=== PATIENT | female | born 1935 | race Two or more races ===

== ENCOUNTER 2023-01-16 21:13 | Inpatient (IN) | payer MEDICARE, OTHER ==
[~2023-01-16] VITALS: Ht 157.5 cm; Wt 46.7 kg
[2023-01-16] MEDS ORDERED: LORAZEPAM INJ 2 MG/ML VIAL IM ONE (23:00)
[2023-01-16] MEDS ORDERED: LORAZEPAM INJ 2 MG/ML VIAL ONE (23:05)
[2023-01-16 23:13] LABS: BASOPHILS % (AUTO) 0.8 % (0.0-2.0); EOSINOPHILS # (AUTO) 0.2 K/uL (0.0-0.7); EOSINOPHILS % (AUTO) 3.3 % (0.0-6.0); HEMATOCRIT 37 % (33-45); HEMOGLOBIN 11.9 g/dL (11.5-14.8); LYMPHOCYTES # (AUTO) 0.9 K/uL (0.8-4.8); LYMPHOCYTES % (AUTO) 17.8 % (20.0-44.0); MEAN CORPUSCULAR HEMOGLOBIN 29 PG (26.0-33.0); MEAN CORPUSCULAR HGB CONC 32 g/dl (31.0-36.0); MEAN CORPUSCULAR VOLUME 91 fL (82-100); MONOCYTES # (AUTO) 0.5 K/uL (0.1-1.30); NEUTROPHILS # (AUTO) 3.6 K/uL (1.8-8.9); NEUTROPHILS % (AUTO) 69.1 % (43.0-81.0); PLATELET COUNT (AUTO) 204 K/uL (150-450); RED BLOOD CELL COUNT(AUTO) 4.04 MIL/uL (4.0-5.2); RED CELL DISTRIBUTION WIDTH 14.4 % (11.5-15.0); WHITE BLOOD COUNT (AUTO) 5.2 K/uL (4.3-11.0)
[2023-01-16 23:20] LABS: CALCIUM, SERUM 9.2 mg/dL (8.5-10.1); CARBON DIOXIDE 26 mmol/L (21-32); CHLORIDE 106 mmol/L (98-107); CREATININE 1.3 mg/dL (0.6-1.3); GLUCOSE 89 mg/dL (74-106); POTASSIUM 3.9 mmol/L (3.5-5.1); SODIUM SERUM 142 mmol/L (136-145); UREA NITROGEN, BLOOD 28 mg/dL (7-18)
[2023-01-16 23:26] LABS: ALANINE AMINOTRANSFERASE 35 U/L (12-78); ALBUMIN 3.6 g/dL (3.4-5.0); ALCOHOL, BLOOD < 3 mg/dL (0-10); ALKALINE PHOSPHATASE 82 U/L (46-116); ASPARTATE AMINOTRANSFERASE 35 U/L (15-37); BILIRUBIN,DIRECT 0.2 mg/dL (0.0-0.2); BILIRUBIN,TOTAL 0.6 mg/dL (0.2-1.0); TOTAL PROTEIN, SERUM 7.5 g/dL (6.4-8.2)
[2023-01-16 23:27] LABS: APPEARANCE,URINE CLEAR (CLEAR); BILIRUBIN,URINE 1+ (NEGATIVE); BLOOD, URINE NEGATIVE Ery/uL (NEGATIVE); COLOR,URINE DARK YELLOW (YELLOW); KETONES,URINE NEGATIVE (NEGATIVE); LEUKOCYTE ESTERASE ,URINE NEGATIVE (NEGATIVE); NITRITE, URINE NEGATIVE (NEGATIVE); PH,URINE 5.5 (5.0-8.0); PROTEIN,URINE 1+ mg/dl (NEGATIVE); UGLUCOSE NEGATIVE (NEGATIVE)
[2023-01-16 23:32] LABS: ADD URINE CULTURE NO; BACTERIA,URINE Rare /HPF (None Seen); RBC,URINE 0-2 /HPF (0-2); SQUAMOUS EPITHELIAL CELL,UR Few /HPF (None Seen); WBC,URINE 0-2 /HPF (0-3)
[2023-01-16 23:44] LABS: ACETAMINOPHEN <10 ug/ml (10-30); SALICYLATE < 2.3 mg/dL (2.8-20.0)
[2023-01-16 23:57] LABS: AMPHETAMINE, URINE NEGATIVE (NEGATIVE); BARBITURATE, URINE NEGATIVE (NEGATIVE); BENZODIAZEPINE, URINE NEGATIVE (NEGATIVE); CANNABINOID, URINE NEGATIVE (NEGATIVE); COCCAINE, URINE NEGATIVE (NEGATIVE); OPIATE, URINE NEGATIVE (NEGATIVE); PHENCYCLIDINE SCREEN,URINE NEGATIVE (NEGATIVE)
[2023-01-17] MEDS ORDERED: BIMA2.5D5 EACHEYE (00:13)
[2023-01-17 03:58] VITALS: BP 148/80; TEMP 98; O2SAT 98
[2023-01-17] MEDS ORDERED: MAG HYDROX/AL HYDROX/SIMETH 30 ML UDC PO PRN (04:00)
[2023-01-17] MEDS ORDERED: BLOOD SUGAR DIAGNOSTIC 1 EACH STRIP IN ONE (04:00)
[2023-01-17] MEDS ORDERED: ACETAMINOPHEN 325 MG TABLET PO PRN (04:00)
[2023-01-17] MEDS: QUETIAPINE FUMARATE 25 MG TABLET PO SCH ×2 (11:00→20:49)
[2023-01-17 16:00] VITALS: BP 162/66; TEMP 97.8; O2SAT 97
[2023-01-17] MEDS: hydrALAZINE HCL 10 MG TABLET PO SCH ×3 (16:30→20:49)
[2023-01-17] MEDS: LATANOPROST EYE DROP 0.005% 2.5 ML BOTTLE OP SCH (17:45)
[2023-01-17] MEDS ORDERED: BIMATOPROST 2.5 ML DROPS OP SCH (18:00)
[2023-01-17 20:00] VITALS: BP 141/71; TEMP 97.6; O2SAT 98
[2023-01-18] MEDS: hydrALAZINE HCL 10 MG TABLET PO SCH ×3 (05:00→20:51)
[2023-01-18 08:00] VITALS: BP 169/103; TEMP 97.7; O2SAT 97
[2023-01-18] MEDS: LORAZEPAM 0.5 MG TABLET PO PRN ×2 (08:12→22:15)
[2023-01-18] MEDS: QUETIAPINE FUMARATE 25 MG TABLET PO SCH ×2 (08:13→20:51)
[2023-01-18 16:00] VITALS: BP 165/86; TEMP 97.6; O2SAT 98
[2023-01-18] MEDS: LATANOPROST EYE DROP 0.005% 2.5 ML BOTTLE OP SCH (17:10)
[2023-01-18 20:00] VITALS: BP 192/78; TEMP 98; O2SAT 99
[2023-01-18 22:00] VITALS: BP 149/75
[2023-01-19] MEDS: hydrALAZINE HCL 10 MG TABLET PO SCH ×3 (05:00→20:50)
[2023-01-19 08:00] VITALS: BP 174/75; TEMP 97.9; O2SAT 99
[2023-01-19] MEDS: QUETIAPINE FUMARATE 25 MG TABLET PO SCH ×2 (08:22→20:50)
[2023-01-19] MEDS ORDERED: LORAZEPAM INJ 2 MG/ML VIAL IM ONE (10:30)
[2023-01-19 16:00] VITALS: BP 164/68; TEMP 97.9; O2SAT 100
[2023-01-19] MEDS: ENSURE ENLIVE CHOC 237 ML CAN PO SCH (17:17)
[2023-01-19] MEDS: LATANOPROST EYE DROP 0.005% 2.5 ML BOTTLE OP SCH (17:20)
[2023-01-19 20:50] VITALS: BP 173/85; O2SAT 98
[2023-01-20] MEDS: ZOLPIDEM TARTRATE 5 MG TABLET PO PRN (00:01)
[2023-01-20] MEDS: hydrALAZINE HCL 10 MG TABLET PO SCH ×3 (05:00→20:48)
[2023-01-20 08:00] VITALS: BP 161/78; TEMP 98.6; O2SAT 96
[2023-01-20] MEDS: QUETIAPINE FUMARATE 25 MG TABLET PO SCH ×2 (08:09→20:46)
[2023-01-20] MEDS: ENSURE ENLIVE CHOC 237 ML CAN PO SCH ×2 (08:11→16:09)
[2023-01-20] MEDS: LORAZEPAM 0.5 MG TABLET PO PRN (15:56)
[2023-01-20] MEDS: LATANOPROST EYE DROP 0.005% 2.5 ML BOTTLE OP SCH (17:01)
[2023-01-21] MEDS: hydrALAZINE HCL 10 MG TABLET PO SCH ×4 (05:00→21:23)
[2023-01-21 08:00] VITALS: BP 157/98; TEMP 98.7; O2SAT 98
[2023-01-21] MEDS: ENSURE ENLIVE CHOC 237 ML CAN PO SCH ×2 (08:09→16:37)
[2023-01-21] MEDS: QUETIAPINE FUMARATE 25 MG TABLET PO SCH ×3 (08:13→21:23)
[2023-01-21] MEDS: LORAZEPAM 0.5 MG TABLET PO PRN (12:13)
[2023-01-21 16:00] VITALS: BP 133/63; TEMP 97.8; O2SAT 98
[2023-01-21] MEDS: LATANOPROST EYE DROP 0.005% 2.5 ML BOTTLE OP SCH (17:54)
[2023-01-21 20:00] VITALS: BP 142/89; TEMP 98.1; O2SAT 99
[2023-01-22] MEDS: hydrALAZINE HCL 10 MG TABLET PO SCH ×4 (04:56→21:29)
[2023-01-22 08:00] VITALS: BP 117/76; TEMP 97.7; O2SAT 98
[2023-01-22] MEDS: ENSURE ENLIVE CHOC 237 ML CAN PO SCH ×2 (08:14→16:48)
[2023-01-22] MEDS: QUETIAPINE FUMARATE 25 MG TABLET PO SCH ×4 (08:14→21:29)
[2023-01-22 16:00] VITALS: BP 120/77; TEMP 97.9; O2SAT 98
[2023-01-22] MEDS: LATANOPROST EYE DROP 0.005% 2.5 ML BOTTLE OP SCH (17:51)
[2023-01-22] MEDS: MAGNESIUM HYDROXIDE 30 ML UDC PO PRN (17:52)
[2023-01-22] MEDS ORDERED: BISACODYL SUPP (10 MG) 10 MG/SUPP.RECT SUPP.RECT RC PRN (18:00)
[2023-01-22 20:00] VITALS: BP 125/71; TEMP 97.5; O2SAT 95
[2023-01-23] MEDS: hydrALAZINE HCL 10 MG TABLET PO SCH ×3 (05:00→21:33)
[2023-01-23 08:00] VITALS: BP 140/68; TEMP 97.8; O2SAT 97
[2023-01-23] MEDS: ENSURE ENLIVE CHOC 237 ML CAN PO SCH ×2 (08:00→17:19)
[2023-01-23] MEDS: QUETIAPINE FUMARATE 25 MG TABLET PO SCH ×2 (08:55→09:00)
[2023-01-23] MEDS ORDERED: OLANZAPINE 10 MG VIAL IM ONE (11:30)
[2023-01-23 16:00] VITALS: BP 152/80; TEMP 97.8; O2SAT 96
[2023-01-23] MEDS: OLANZAPINE 2.5 MG TABLET PO SCH ×2 (17:19→21:33)
[2023-01-23] MEDS: LATANOPROST EYE DROP 0.005% 2.5 ML BOTTLE OP SCH (18:12)
[2023-01-23] MEDS: ZOLPIDEM TARTRATE 5 MG TABLET PO PRN (21:39)
[2023-01-24] MEDS: hydrALAZINE HCL 10 MG TABLET PO SCH ×3 (05:00→21:00)
[2023-01-24 08:00] VITALS: BP 157/70; TEMP 97.5; O2SAT 94
[2023-01-24] MEDS: ENSURE ENLIVE CHOC 237 ML CAN PO SCH ×2 (08:35→17:00)
[2023-01-24] MEDS: OLANZAPINE 2.5 MG TABLET PO SCH ×3 (08:35→21:45)
[2023-01-24 16:00] VITALS: BP 144/63; TEMP 97.8; O2SAT 96
[2023-01-24] MEDS: LATANOPROST EYE DROP 0.005% 2.5 ML BOTTLE OP SCH (18:00)
[2023-01-24 20:00] VITALS: BP 133/80; TEMP 98; O2SAT 98
[2023-01-25] MEDS: hydrALAZINE HCL 10 MG TABLET PO SCH ×3 (04:50→21:00)
[2023-01-25 08:00] VITALS: BP 138/65; TEMP 98; O2SAT 97
[2023-01-25] MEDS: ENSURE ENLIVE CHOC 237 ML CAN PO SCH ×2 (08:00→16:15)
[2023-01-25] MEDS: OLANZAPINE 2.5 MG TABLET PO SCH ×4 (08:31→21:26)
[2023-01-25 16:00] VITALS: TEMP 97.7; O2SAT 99
[2023-01-25] MEDS: LATANOPROST EYE DROP 0.005% 2.5 ML BOTTLE OP SCH (17:49)
[2023-01-25 21:08] VITALS: BP 136/76; TEMP 97.8; O2SAT 99
[2023-01-26] MEDS: hydrALAZINE HCL 10 MG TABLET PO SCH ×3 (05:00→21:04)
[2023-01-26 08:00] VITALS: BP 139/75; TEMP 98.6; O2SAT 98
[2023-01-26] MEDS: ENSURE ENLIVE CHOC 237 ML CAN PO SCH ×3 (08:00→17:00)
[2023-01-26] MEDS: OLANZAPINE 2.5 MG TABLET PO SCH ×3 (09:00→21:35)
[2023-01-26] MEDS ORDERED: OLANZAPINE 10 MG VIAL IM ONE (10:00)
[2023-01-26] MEDS: LATANOPROST EYE DROP 0.005% 2.5 ML BOTTLE OP SCH (18:12)
[2023-01-26 21:10] VITALS: BP 145/68; TEMP 97.8; O2SAT 98
[2023-01-27] MEDS: hydrALAZINE HCL 10 MG TABLET PO SCH ×4 (05:00→20:39)
[2023-01-27 08:00] VITALS: BP 145/57; TEMP 98.6; O2SAT 100
[2023-01-27] MEDS: OLANZAPINE 2.5 MG TABLET PO SCH ×3 (09:00→22:00)
[2023-01-27] MEDS: ENSURE ENLIVE CHOC 237 ML CAN PO SCH ×3 (09:00→17:00)
[2023-01-27] MEDS: LATANOPROST EYE DROP 0.005% 2.5 ML BOTTLE OP SCH (17:01)
[2023-01-27 20:34] VITALS: BP 138/91; TEMP 98.4; O2SAT 100
[2023-01-27 20:36] VITALS: BP 101/62; TEMP 98.2; O2SAT 97
[2023-01-28] MEDS: hydrALAZINE HCL 10 MG TABLET PO SCH ×3 (04:52→21:17)
[2023-01-28 08:00] VITALS: BP 155/88; TEMP 98.7; O2SAT 100
[2023-01-28] MEDS: OLANZAPINE 2.5 MG TABLET PO SCH ×4 (08:43→21:16)
[2023-01-28] MEDS: ENSURE ENLIVE CHOC 237 ML CAN PO SCH ×3 (08:44→17:15)
[2023-01-28 16:00] VITALS: BP 158/70; TEMP 97.7; O2SAT 99
[2023-01-28] MEDS: LATANOPROST EYE DROP 0.005% 2.5 ML BOTTLE OP SCH (17:15)
[2023-01-28 20:19] VITALS: BP 151/75; TEMP 98.1; O2SAT 96
[2023-01-28] MEDS: ZOLPIDEM TARTRATE 5 MG TABLET PO PRN (21:17)
[2023-01-29] MEDS: hydrALAZINE HCL 10 MG TABLET PO SCH ×3 (05:00→21:00)
[2023-01-29 08:00] VITALS: BP 125/64; TEMP 97.6; O2SAT 94
[2023-01-29] MEDS: OLANZAPINE 2.5 MG TABLET PO SCH (08:31)
[2023-01-29] MEDS: ENSURE ENLIVE CHOC 237 ML CAN PO SCH ×3 (08:31→16:01)
[2023-01-29] MEDS: risperiDONE 1 MG TABLET PO SCH ×2 (13:30→16:06)
[2023-01-29] MEDS: OLANZAPINE 10 MG VIAL IM PRN ×2 (13:43→17:36)
[2023-01-29] MEDS: MAGNESIUM HYDROXIDE 30 ML UDC PO PRN (15:39)
[2023-01-29 16:00] VITALS: BP 127/89; TEMP 97.6; O2SAT 96
[2023-01-29] MEDS: LATANOPROST EYE DROP 0.005% 2.5 ML BOTTLE OP SCH (17:06)
[2023-01-29 20:00] VITALS: BP 137/71; TEMP 97.6; O2SAT 95
[2023-01-30] MEDS: hydrALAZINE HCL 10 MG TABLET PO SCH ×3 (05:00→20:38)
[2023-01-30 08:00] VITALS: BP 143/86; TEMP 97.8; O2SAT 96
[2023-01-30] MEDS: risperiDONE 1 MG TABLET PO SCH ×3 (09:00→17:00)
[2023-01-30] MEDS: ENSURE ENLIVE CHOC 237 ML CAN PO SCH ×3 (09:00→17:00)
[2023-01-30] MEDS: OLANZAPINE 10 MG VIAL IM PRN ×2 (10:39→13:49)
[2023-01-30] MEDS: LATANOPROST EYE DROP 0.005% 2.5 ML BOTTLE OP SCH (18:00)
[2023-01-30 20:00] VITALS: BP 129/70; TEMP 98.6; O2SAT 98
[2023-01-31] MEDS: hydrALAZINE HCL 10 MG TABLET PO SCH ×3 (05:00→21:34)
[2023-01-31 08:00] VITALS: BP 145/83; TEMP 97.6; O2SAT 96
[2023-01-31] MEDS: OLANZAPINE 10 MG VIAL IM PRN (08:52)
[2023-01-31] MEDS: risperiDONE 1 MG TABLET PO SCH (08:52)
[2023-01-31] MEDS: ENSURE ENLIVE CHOC 237 ML CAN PO SCH ×3 (08:52→17:00)
[2023-01-31] MEDS: HALOPERIDOL 5 MG TABLET PO SCH ×3 (13:00→21:35)
[2023-01-31] MEDS: HALOPERIDOL LACTATE INJ 5 MG/ML VIAL IM PRN (13:46)
[2023-01-31 16:00] VITALS: BP 165/118; TEMP 97.8; O2SAT 98
[2023-01-31] MEDS: BENZTROPINE MESYLATE (1 MG) 1 MG TABLET PO SCH (17:00)
[2023-01-31] MEDS: LATANOPROST EYE DROP 0.005% 2.5 ML BOTTLE OP SCH (17:25)
[2023-01-31 21:41] VITALS: BP 155/56; TEMP 98.1; O2SAT 98
[2023-01-31] MEDS: ZOLPIDEM TARTRATE 5 MG TABLET PO PRN (23:16)
[2023-02-01] MEDS: hydrALAZINE HCL 10 MG TABLET PO SCH ×3 (04:39→21:00)
[2023-02-01] MEDS: HALOPERIDOL LACTATE INJ 5 MG/ML VIAL IM PRN ×3 (08:57→21:31)
[2023-02-01] MEDS: HALOPERIDOL 5 MG TABLET PO SCH ×4 (09:00→21:00)
[2023-02-01] MEDS ORDERED: HALOPERIDOL DECANOATE IM 100 MG/ML AMPUL IM SCH (09:00)
[2023-02-01] MEDS: BENZTROPINE MESYLATE (1 MG) 1 MG TABLET PO SCH ×2 (09:00→17:00)
[2023-02-01] MEDS: ENSURE ENLIVE CHOC 237 ML CAN PO SCH ×3 (09:12→17:00)
[2023-02-01] MEDS: LATANOPROST EYE DROP 0.005% 2.5 ML BOTTLE OP SCH (18:00)
[2023-02-01 20:25] VITALS: BP 128/69; TEMP 98.2; O2SAT 96
[2023-02-02] MEDS: hydrALAZINE HCL 10 MG TABLET PO SCH ×3 (05:00→21:00)
[2023-02-02 08:00] VITALS: BP 140/62; TEMP 98.5; O2SAT 96
[2023-02-02] MEDS: HALOPERIDOL 5 MG TABLET PO SCH ×4 (09:00→20:35)
[2023-02-02] MEDS: BENZTROPINE MESYLATE (1 MG) 1 MG TABLET PO SCH ×2 (09:00→17:41)
[2023-02-02] MEDS: ENSURE ENLIVE CHOC 237 ML CAN PO SCH ×3 (09:31→18:00)
[2023-02-02] MEDS: HALOPERIDOL LACTATE INJ 5 MG/ML VIAL IM PRN (09:35)
[2023-02-02 16:00] VITALS: BP 134/87; TEMP 97.5; O2SAT 98
[2023-02-02] MEDS: LATANOPROST EYE DROP 0.005% 2.5 ML BOTTLE OP SCH (18:00)
[2023-02-02] MEDS: ZOLPIDEM TARTRATE 5 MG TABLET PO PRN (22:19)
[2023-02-03] MEDS: hydrALAZINE HCL 10 MG TABLET PO SCH ×3 (04:45→20:31)
[2023-02-03 07:19] LABS: THYROID STIMULATING HORMONE 4.157 uIU/mL (0.358-3.74)
[2023-02-03 08:00] VITALS: BP 128/59; TEMP 98.1; O2SAT 99
[2023-02-03] MEDS: ENSURE ENLIVE CHOC 237 ML CAN PO SCH ×3 (08:45→17:22)
[2023-02-03] MEDS: BENZTROPINE MESYLATE (1 MG) 1 MG TABLET PO SCH ×2 (08:45→16:41)
[2023-02-03] MEDS: HALOPERIDOL 5 MG TABLET PO SCH ×4 (08:45→20:28)
[2023-02-03] MEDS ORDERED: CYANOCOBALAMIN 1,000 MCG/ML VIAL IM SCH (10:00)
[2023-02-03 13:00] VITALS: BP 120/59; O2SAT 98
[2023-02-03] MEDS: CYANOCOBALAMIN 500 MCG TABLET PO SCH (13:00)
[2023-02-03] MEDS: LATANOPROST EYE DROP 0.005% 2.5 ML BOTTLE OP SCH (17:05)
[2023-02-03 20:00] VITALS: BP 147/82; TEMP 98.3; O2SAT 95
[2023-02-03] MEDS: ZOLPIDEM TARTRATE 5 MG TABLET PO PRN (21:57)
[2023-02-04] MEDS: hydrALAZINE HCL 10 MG TABLET PO SCH ×3 (05:00→21:10)
[2023-02-04 08:00] VITALS: BP 104/51; TEMP 97.8; O2SAT 100
[2023-02-04] MEDS: HALOPERIDOL 5 MG TABLET PO SCH ×4 (09:00→21:10)
[2023-02-04] MEDS: ENSURE ENLIVE CHOC 237 ML CAN PO SCH ×3 (09:00→18:03)
[2023-02-04] MEDS: CYANOCOBALAMIN 500 MCG TABLET PO SCH (09:00)
[2023-02-04] MEDS: BENZTROPINE MESYLATE (1 MG) 1 MG TABLET PO SCH ×2 (09:00→18:07)
[2023-02-04 12:07] LABS: FOLIC ACID 14.2 ng/mL (>3.0)
[2023-02-04] MEDS: LORAZEPAM 0.5 MG TABLET PO PRN (14:56)
[2023-02-04] MEDS: LATANOPROST EYE DROP 0.005% 2.5 ML BOTTLE OP SCH (18:06)
[2023-02-04 20:00] VITALS: BP 125/61; TEMP 97.4; O2SAT 100
[2023-02-04 21:01] VITALS: BP 125/61; TEMP 97.4; O2SAT 99
[2023-02-04] MEDS: ZOLPIDEM TARTRATE 5 MG TABLET PO PRN (23:08)
[2023-02-05] MEDS: hydrALAZINE HCL 10 MG TABLET PO SCH ×2 (05:35→12:33)
[2023-02-05 08:00] VITALS: BP 110/76; TEMP 97.7; O2SAT 96
[2023-02-05] MEDS: BENZTROPINE MESYLATE (1 MG) 1 MG TABLET PO SCH (08:35)
[2023-02-05] MEDS: CYANOCOBALAMIN 500 MCG TABLET PO SCH (08:35)
[2023-02-05] MEDS: HALOPERIDOL 5 MG TABLET PO SCH ×2 (08:36→12:33)
[2023-02-05] MEDS: ENSURE ENLIVE CHOC 237 ML CAN PO SCH ×2 (08:42→12:33)
[2023-02-05 12:33] VITALS: BP 122/78
== END 2023-02-05 13:40 | DRG 885 ==
LOC: ER 21:14 → GPS 01-17 01:41
PROVIDERS: ADMIT Psychiatry & Neurology Psychiatry; ATTEND Internal Medicine
DX: F29 Unspecified psychosis not due to a substance or known physiological condition (principal); F03.94 Unspecified dementia, unspecified severity, with anxiety; F03.918 Unspecified dementia, unspecified severity, with other behavioral disturbance; I10 Essential (primary) hypertension; H26.9 Unspecified cataract; Z20.822 Contact with and (suspected) exposure to COVID-19; Z79.899 Other long term (current) drug therapy; E53.8 Deficiency of other specified B group vitamins; F32.A Depression, unspecified; F41.9 Anxiety disorder, unspecified; Z91.81 History of falling; Z73.6 Limitation of activities due to disability; R53.1 Weakness; R27.8 Other lack of coordination
CPT/HCPCS: 36415; 70450-TC; 80048-TC; 80076-TC; 81001; 82607-TC; 83921; 84439-TC; 84443-TC; 85025-TC; 87081-TC; 97112-TC; 97116-TC; 97530-TC; A6403; C9803; G0480; J1630; J1631; J2060; J3420; J3490

== ENCOUNTER 2023-03-10 14:51 | Inpatient (IN) | payer MEDICARE, OTHER ==
[~2023-03-10] VITALS: Ht 152.4 cm; Wt 44.9 kg
[2023-03-10 14:52] VITALS: O2SAT 100
[2023-03-10] MEDS ORDERED: BENZ1TAB7 PO (15:29)
[2023-03-10] MEDS ORDERED: ACET-868 PO (15:30)
[2023-03-10] MEDS ORDERED: MAG30ORA PO (15:30)
[2023-03-10] MEDS ORDERED: CYAN-51 PO (15:30)
[2023-03-10] MEDS ORDERED: MAGN400O6 PO (15:30)
[2023-03-10] MEDS ORDERED: HALO50AM2 IM (15:30)
[2023-03-10] MEDS ORDERED: LORA-258 PO (15:30)
[2023-03-10] MEDS ORDERED: HALO5TAB PO (15:30)
[2023-03-10] MEDS ORDERED: HYDR-4075 PO (15:30)
[2023-03-10] MEDS ORDERED: LATA2.5D2 EACHEYE (15:30)
[2023-03-10] MEDS ORDERED: BISA10SU11 RC (15:30)
[2023-03-10 16:23] LABS: ALANINE AMINOTRANSFERASE 38 U/L (12-78); ALBUMIN 3.6 g/dL (3.4-5.0); ALCOHOL, BLOOD < 3 mg/dL (0-10); ALKALINE PHOSPHATASE 113 U/L (46-116); ASPARTATE AMINOTRANSFERASE 49 U/L (15-37); BILIRUBIN,DIRECT 0.1 mg/dL (0.0-0.2); BILIRUBIN,TOTAL 0.4 mg/dL (0.2-1.0); CALCIUM, SERUM 9.5 mg/dL (8.5-10.1); CARBON DIOXIDE 31 mmol/L (21-32); CHLORIDE 101 mmol/L (98-107); GLUCOSE 97 mg/dL (74-106); POTASSIUM 4.5 mmol/L (3.5-5.1); SODIUM SERUM 135 mmol/L (136-145); TOTAL PROTEIN, SERUM 7.6 g/dL (6.4-8.2); UREA NITROGEN, BLOOD 23 mg/dL (7-18)
[2023-03-10 16:24] LABS: BASOPHILS % (AUTO) 0.8 % (0.0-2.0); EOSINOPHILS # (AUTO) 0.1 K/uL (0.0-0.7); EOSINOPHILS % (AUTO) 1.6 % (0.0-6.0); HEMATOCRIT 36 % (33-45); HEMOGLOBIN 11.6 g/dL (11.5-14.8); LYMPHOCYTES # (AUTO) 0.8 K/uL (0.8-4.8); LYMPHOCYTES % (AUTO) 15.5 % (20.0-44.0); MEAN CORPUSCULAR HEMOGLOBIN 29 PG (26.0-33.0); MEAN CORPUSCULAR HGB CONC 32 g/dl (31.0-36.0); MEAN CORPUSCULAR VOLUME 90 fL (82-100); MONOCYTES # (AUTO) 0.6 K/uL (0.1-1.30); MONOCYTES % (AUTO) 11.5 % (2.0-12.0); NEUTROPHILS # (AUTO) 3.4 K/uL (1.8-8.9); NEUTROPHILS % (AUTO) 70.6 % (43.0-81.0); PLATELET COUNT (AUTO) 254 K/uL (150-450); RED BLOOD CELL COUNT(AUTO) 3.99 MIL/uL (4.0-5.2); RED CELL DISTRIBUTION WIDTH 14.9 % (11.5-15.0); WHITE BLOOD COUNT (AUTO) 4.9 K/uL (4.3-11.0)
[2023-03-10] MEDS ORDERED: BISACODYL SUPP (10 MG) 10 MG/SUPP.RECT SUPP.RECT RC PRN (16:30)
[2023-03-10] MEDS ORDERED: ACETAMINOPHEN 325 MG TABLET PO PRN ×2 (16:30→23:30)
[2023-03-10] MEDS ORDERED: MAGNESIUM HYDROXIDE 30 ML UDC PO PRN ×2 (16:30→23:30)
[2023-03-10 16:31] LABS: SALICYLATE 0.9 mg/dL (2.8-20.0)
[2023-03-10 16:33] LABS: ACETAMINOPHEN <10 ug/ml (10-30)
[2023-03-10] MEDS ORDERED: BENZTROPINE MESYLATE (1 MG) 1 MG TABLET PO SCH (17:00)
[2023-03-10] MEDS ORDERED: BENZTROPINE MESYLATE (1 MG) 1 MG TABLET ONE (17:58)
[2023-03-10 20:38] LABS: APPEARANCE,URINE CLOUDY (CLEAR); BILIRUBIN,URINE NEGATIVE (NEGATIVE); BLOOD, URINE TRACE-INTA Ery/uL (NEGATIVE); COLOR,URINE YELLOW (YELLOW); KETONES,URINE TRACE mg/dL (NEGATIVE); LEUKOCYTE ESTERASE ,URINE 3+ (NEGATIVE); NITRITE, URINE NEGATIVE (NEGATIVE); PROTEIN,URINE NEGATIVE (NEGATIVE); UGLUCOSE NEGATIVE (NEGATIVE); UROBILINOGEN,URINE 0.2 EU/dL (0.2)
[2023-03-10 21:06] LABS: AMPHETAMINE, URINE NEGATIVE (NEGATIVE); BARBITURATE, URINE NEGATIVE (NEGATIVE); BENZODIAZEPINE, URINE NEGATIVE (NEGATIVE); CANNABINOID, URINE NEGATIVE (NEGATIVE); COCCAINE, URINE NEGATIVE (NEGATIVE); OPIATE, URINE NEGATIVE (NEGATIVE); PHENCYCLIDINE SCREEN,URINE NEGATIVE (NEGATIVE)
[2023-03-10 21:27] LABS: ADD URINE CULTURE YES; BACTERIA,URINE Few /HPF (None Seen); RBC,URINE 0-2 /HPF (0-2)
[2023-03-10] MEDS ORDERED: ZOLPIDEM TARTRATE 5 MG TABLET PO PRN (23:30)
[2023-03-10] MEDS ORDERED: LORAZEPAM 0.5 MG TABLET PO PRN (23:30)
[2023-03-10] MEDS ORDERED: MAG HYDROX/AL HYDROX/SIMETH 30 ML UDC PO PRN (23:30)
[2023-03-10] MEDS ORDERED: BLOOD SUGAR DIAGNOSTIC 1 EACH STRIP IN ONE (23:30)
[2023-03-11 00:53] VITALS: BP 160/98; TEMP 97.8
[2023-03-11 07:05] LABS: CHOLESTEROL 225 mg/dL (<200); HDL CHOLESTEROL 90 mg/dL (40-60); LDL 115 mg/dL (0-99); TRIGLYCERIDES 54 mg/dL (30-150)
[2023-03-11 08:00] VITALS: BP 170/79; TEMP 97.9; O2SAT 100
[2023-03-11] MEDS: ENSURE ENLIVE 237 ML LIQUID (VANILLA) PO SCH ×2 (09:28→17:08)
[2023-03-11] MEDS: hydrALAZINE HCL 10 MG TABLET PO SCH (09:40)
[2023-03-11] MEDS: CYANOCOBALAMIN 500 MCG TABLET PO SCH (09:40)
[2023-03-11] MEDS: LATANOPROST EYE DROP 0.005% 2.5 ML BOTTLE EACHEYE SCH (09:40)
[2023-03-11 11:08] LABS: CREATININE 0.9 mg/dL (0.6-1.3)
[2023-03-11] MEDS: DIVALPROEX SODIUM 125 MG CAP.SPRINK PO SCH ×2 (13:31→17:08)
[2023-03-11 16:00] VITALS: BP 131/61; TEMP 98.7; O2SAT 97
[2023-03-11] MEDS: BENZTROPINE MESYLATE (1 MG) 1 MG TABLET PO SCH (17:08)
[2023-03-11] MEDS: HALOPERIDOL 5 MG TABLET PO SCH (17:08)
[2023-03-11 20:23] VITALS: BP 120/62; TEMP 98.1; O2SAT 100
[2023-03-12 08:00] VITALS: BP 161/64; TEMP 98; O2SAT 97
[2023-03-12] MEDS: CYANOCOBALAMIN 500 MCG TABLET PO SCH ×2 (08:59→09:00)
[2023-03-12] MEDS: hydrALAZINE HCL 10 MG TABLET PO SCH ×2 (08:59→09:00)
[2023-03-12] MEDS: BENZTROPINE MESYLATE (1 MG) 1 MG TABLET PO SCH ×2 (09:00→16:16)
[2023-03-12] MEDS: ENSURE ENLIVE 237 ML LIQUID (VANILLA) PO SCH ×2 (09:00→17:39)
[2023-03-12] MEDS: HALOPERIDOL 5 MG TABLET PO SCH ×2 (09:00→16:16)
[2023-03-12] MEDS: DIVALPROEX SODIUM 125 MG CAP.SPRINK PO SCH ×3 (09:00→16:16)
[2023-03-12] MEDS: LATANOPROST EYE DROP 0.005% 2.5 ML BOTTLE EACHEYE SCH (09:01)
[2023-03-12 09:26] VITALS: BP 136/75
[2023-03-12 16:00] VITALS: BP 154/80; TEMP 98.4; O2SAT 100
[2023-03-12 21:10] VITALS: BP 138/70; TEMP 97.7; O2SAT 100
[2023-03-13 08:00] VITALS: BP 131/70; TEMP 97.6; O2SAT 100
[2023-03-13] MEDS: LATANOPROST EYE DROP 0.005% 2.5 ML BOTTLE EACHEYE SCH (08:41)
[2023-03-13] MEDS: ENSURE ENLIVE 237 ML LIQUID (VANILLA) PO SCH ×2 (08:41→17:28)
[2023-03-13] MEDS: DIVALPROEX SODIUM 125 MG CAP.SPRINK PO SCH ×3 (08:43→17:30)
[2023-03-13] MEDS: HALOPERIDOL 5 MG TABLET PO SCH ×2 (08:43→17:30)
[2023-03-13] MEDS: BENZTROPINE MESYLATE (1 MG) 1 MG TABLET PO SCH ×2 (08:43→17:30)
[2023-03-13] MEDS: hydrALAZINE HCL 10 MG TABLET PO SCH (08:44)
[2023-03-13] MEDS: CYANOCOBALAMIN 500 MCG TABLET PO SCH (08:45)
[2023-03-13 16:00] VITALS: BP 134/62; TEMP 99.9; O2SAT 96
[2023-03-13] MEDS: CEPHALEXIN MONOHYDRATE 250 MG CAPSULE PO SCH (17:30)
[2023-03-13 17:46] VITALS: TEMP 98.1
[2023-03-13 20:00] VITALS: BP 117/66; TEMP 98.2; O2SAT 98
[2023-03-14 08:00] VITALS: BP 133/65; TEMP 100.2; O2SAT 98
[2023-03-14] MEDS: ENSURE ENLIVE 237 ML LIQUID (VANILLA) PO SCH ×2 (08:00→16:07)
[2023-03-14] MEDS: BENZTROPINE MESYLATE (1 MG) 1 MG TABLET PO SCH ×2 (08:00→16:10)
[2023-03-14] MEDS: CEPHALEXIN MONOHYDRATE 250 MG CAPSULE PO SCH (08:00)
[2023-03-14] MEDS: DIVALPROEX SODIUM 125 MG CAP.SPRINK PO SCH ×3 (08:00→16:10)
[2023-03-14] MEDS: CYANOCOBALAMIN 500 MCG TABLET PO SCH (08:00)
[2023-03-14] MEDS: HALOPERIDOL 5 MG TABLET PO SCH ×2 (08:00→16:10)
[2023-03-14] MEDS: hydrALAZINE HCL 10 MG TABLET PO SCH (08:01)
[2023-03-14] MEDS: LATANOPROST EYE DROP 0.005% 2.5 ML BOTTLE EACHEYE SCH (08:47)
[2023-03-14] MEDS ORDERED: LEVOFLOXACIN (250MG) 250 MG TABLET PO SCH (14:00)
[2023-03-14 16:00] VITALS: BP 141/70; TEMP 99.7; O2SAT 97
[2023-03-14] MEDS ORDERED: HYDR-4075 PO (17:31)
[2023-03-14] MEDS ORDERED: LACT-246 PO (17:31)
[2023-03-14] MEDS ORDERED: DIVA125C5 PO (17:31)
[2023-03-14] MEDS ORDERED: LEVO750T46 PO (17:31)
[2023-03-14] MEDS ORDERED: ZOLP5TAB8 PO (17:31)
== END 2023-03-14 16:45 | DRG 885 ==
LOC: ER 14:53 → GPS 21:56
PROVIDERS: ADMIT Psychiatry & Neurology Psychiatry
DX: F29 Unspecified psychosis not due to a substance or known physiological condition (principal); I11.0 Hypertensive heart disease with heart failure; J18.9 Pneumonia, unspecified organism; F03.93 Unspecified dementia, unspecified severity, with mood disturbance; F03.92 Unspecified dementia, unspecified severity, with psychotic disturbance; F03.94 Unspecified dementia, unspecified severity, with anxiety; F03.911 Unspecified dementia, unspecified severity, with agitation; G62.9 Polyneuropathy, unspecified; I50.9 Heart failure, unspecified; H40.9 Unspecified glaucoma; F31.9 Bipolar disorder, unspecified; F41.9 Anxiety disorder, unspecified; F39 Unspecified mood [affective] disorder; R45.1 Restlessness and agitation; Z73.6 Limitation of activities due to disability; R79.89 Other specified abnormal findings of blood chemistry
CPT/HCPCS: 36415; 71045-TC; 80048-TC; 80061-TC; 80076-TC; 81001; 82565-TC; 82962-TC; 85025-TC; 87081-TC; 87086-TC; 92526; 92611-TC; 97116-TC; 97530-TC; G0480

== ENCOUNTER 2023-03-14 15:52 | Inpatient (IN) | payer MEDICARE, OTHER ==
[~2023-03-14] VITALS: Ht 152.4 cm; Wt 44.9 kg
[~2023-03-14 15:52] MED LIST: ACET-868 PO; BENZ1TAB7 PO; BISA10SU11 RC; CYAN-51 PO; HALO50AM2 IM; HALO5TAB PO; HYDR-4075 PO; LATA2.5D2 EACHEYE; LORA-258 PO; MAG30ORA PO; MAGN400O6 PO
[2023-03-14 17:10] VITALS: BP 111/70; TEMP 98.2; O2SAT 94
[2023-03-14] MEDS ORDERED: HYDR-4075 PO (17:31)
[2023-03-14] MEDS ORDERED: LACT-246 PO (17:31)
[2023-03-14] MEDS ORDERED: ZOLP5TAB8 PO (17:31)
[2023-03-14] MEDS ORDERED: DIVA125C5 PO (17:31)
[2023-03-14] MEDS ORDERED: LEVO750T46 PO (17:31)
[2023-03-14 20:00] VITALS: BP 127/57; TEMP 94.5; O2SAT 94
[2023-03-14] MEDS ORDERED: LORAZEPAM 0.5 MG TABLET PO PRN (21:00)
[2023-03-14] MEDS ORDERED: ZOLPIDEM TARTRATE 5 MG TABLET PO PRN (21:00)
[2023-03-14] MEDS ORDERED: MAGNESIUM HYDROXIDE 30 ML UDC PO PRN (21:00)
[2023-03-14] MEDS ORDERED: BISACODYL SUPP (10 MG) 10 MG/SUPP.RECT SUPP.RECT RC PRN (21:00)
[2023-03-14] MEDS ORDERED: MAG HYDROX/AL HYDROX/SIMETH 30 ML UDC PO PRN (21:00)
[2023-03-14] MEDS ORDERED: ACETAMINOPHEN 325 MG TABLET PO PRN (21:00)
[2023-03-14] MEDS: LATANOPROST EYE DROP 0.005% 2.5 ML BOTTLE EACHEYE SCH (22:24)
[2023-03-15 04:00] VITALS: BP 136/64; TEMP 98.1; O2SAT 100
[2023-03-15 06:26] LABS: BASOPHILS % (AUTO) 0.3 % (0.0-2.0); EOSINOPHILS % (AUTO) 0.4 % (0.0-6.0); HEMATOCRIT 34 % (33-45); HEMOGLOBIN 11.4 g/dL (11.5-14.8); LYMPHOCYTES # (AUTO) 0.7 K/uL (0.8-4.8); MEAN CORPUSCULAR HEMOGLOBIN 30 PG (26.0-33.0); MEAN CORPUSCULAR HGB CONC 33 g/dl (31.0-36.0); MEAN CORPUSCULAR VOLUME 89 fL (82-100); MONOCYTES # (AUTO) 1.3 K/uL (0.1-1.30); MONOCYTES % (AUTO) 13.1 % (2.0-12.0); NEUTROPHILS % (AUTO) 79.2 % (43.0-81.0); PLATELET COUNT (AUTO) 143 K/uL (150-450); RED BLOOD CELL COUNT(AUTO) 3.85 MIL/uL (4.0-5.2); RED CELL DISTRIBUTION WIDTH 14.9 % (11.5-15.0)
[2023-03-15 06:51] LABS: ALBUMIN 2.6 g/dL (3.4-5.0); BILIRUBIN,TOTAL 0.8 mg/dL (0.2-1.0); CALCIUM, SERUM 9.1 mg/dL (8.5-10.1); CREATININE 1.2 mg/dL (0.6-1.3); MAGNESIUM 2.2 mg/dL (1.8-2.4); PHOSPHORUS 4.2 mg/dL (2.5-4.9); POTASSIUM 4.5 mmol/L (3.5-5.1); TOTAL PROTEIN, SERUM 7.3 g/dL (6.4-8.2)
[2023-03-15 08:00] VITALS: BP 169/75; TEMP 98.2; O2SAT 98
[2023-03-15] MEDS: hydrALAZINE HCL 10 MG TABLET PO SCH (08:46)
[2023-03-15] MEDS: ENSURE ENLIVE 237 ML LIQUID (VANILLA) PO SCH ×2 (08:47→16:09)
[2023-03-15] MEDS: HALOPERIDOL 5 MG TABLET PO SCH ×2 (08:47→16:08)
[2023-03-15] MEDS: CYANOCOBALAMIN 500 MCG TABLET PO SCH (08:47)
[2023-03-15] MEDS: DIVALPROEX SODIUM 250 MG TABLET.DR PO SCH ×4 (08:47→16:08)
[2023-03-15] MEDS: BENZTROPINE MESYLATE (1 MG) 1 MG TABLET PO SCH ×2 (08:47→16:09)
[2023-03-15 11:55] VITALS: BP 157/62; TEMP 98.1; O2SAT 100
[2023-03-15 12:45] LABS: APPEARANCE,URINE CLEAR (CLEAR); BILIRUBIN,URINE NEGATIVE (NEGATIVE); BLOOD, URINE TRACE-INTA Ery/uL (NEGATIVE); COLOR,URINE YELLOW (YELLOW); KETONES,URINE TRACE mg/dL (NEGATIVE); LEUKOCYTE ESTERASE ,URINE 1+ (NEGATIVE); NITRITE, URINE NEGATIVE (NEGATIVE); PROTEIN,URINE 1+ mg/dl (NEGATIVE); UGLUCOSE NEGATIVE (NEGATIVE)
[2023-03-15 12:55] LABS: ADD URINE CULTURE YES; BACTERIA,URINE Few /HPF (None Seen); EOSINOPHIL,URINE None Seen; RBC,URINE 0-2 /HPF (0-2); SQUAMOUS EPITHELIAL CELL,UR Rare /HPF (None Seen)
[2023-03-15 12:59] LABS: CREATININE, URINE 119.5 MG/DL (30.0-125.0); URINE TOTAL PROTEIN 77.3 mg/dL (0-11.9)
[2023-03-15 15:55] VITALS: BP 146/68; TEMP 98.3; O2SAT 100
[2023-03-15] MEDS: ENOXAPARIN SODIUM 30 MG/0.3 ML DISP.SYRIN SQ SCH (16:14)
[2023-03-15 20:00] VITALS: BP 151/64; TEMP 97.9; O2SAT 100
[2023-03-15] MEDS: LATANOPROST EYE DROP 0.005% 2.5 ML BOTTLE EACHEYE SCH (21:23)
[2023-03-15] MEDS: ATORVASTATIN 10 MG TABLET PO SCH (22:16)
[2023-03-16 06:39] LABS: BASOPHILS % (AUTO) 0.3 % (0.0-2.0); EOSINOPHILS # (AUTO) 0.1 K/uL (0.0-0.7); EOSINOPHILS % (AUTO) 1.4 % (0.0-6.0); HEMATOCRIT 35 % (33-45); HEMOGLOBIN 11.2 g/dL (11.5-14.8); LYMPHOCYTES # (AUTO) 0.7 K/uL (0.8-4.8); LYMPHOCYTES % (AUTO) 7.8 % (20.0-44.0); MEAN CORPUSCULAR HEMOGLOBIN 29 PG (26.0-33.0); MEAN CORPUSCULAR HGB CONC 32 g/dl (31.0-36.0); MEAN CORPUSCULAR VOLUME 90 fL (82-100); MONOCYTES # (AUTO) 1.1 K/uL (0.1-1.30); MONOCYTES % (AUTO) 12.4 % (2.0-12.0); NEUTROPHILS # (AUTO) 6.6 K/uL (1.8-8.9); NEUTROPHILS % (AUTO) 78.1 % (43.0-81.0); PLATELET COUNT (AUTO) 180 K/uL (150-450); RED BLOOD CELL COUNT(AUTO) 3.87 MIL/uL (4.0-5.2); WHITE BLOOD COUNT (AUTO) 8.5 K/uL (4.3-11.0)
[2023-03-16 06:54] LABS: ALANINE AMINOTRANSFERASE 29 U/L (12-78); ALBUMIN 2.4 g/dL (3.4-5.0); ALKALINE PHOSPHATASE 82 U/L (46-116); ASPARTATE AMINOTRANSFERASE 36 U/L (15-37); BILIRUBIN,TOTAL 0.5 mg/dL (0.2-1.0); CALCIUM, SERUM 9.4 mg/dL (8.5-10.1); CARBON DIOXIDE 28 mmol/L (21-32); CHLORIDE 105 mmol/L (98-107); CREATININE 1.2 mg/dL (0.6-1.3); GLUCOSE 103 mg/dL (74-106); MAGNESIUM 2.3 mg/dL (1.8-2.4); PHOSPHORUS 4.3 mg/dL (2.5-4.9); POTASSIUM 4.3 mmol/L (3.5-5.1); SODIUM SERUM 140 mmol/L (136-145); TOTAL PROTEIN, SERUM 7.2 g/dL (6.4-8.2); UREA NITROGEN, BLOOD 48 mg/dL (7-18)
[2023-03-16 06:58] LABS: CREATINE KINASE, TOTAL 531 U/L (26-192)
[2023-03-16 08:00] VITALS: BP 153/73; TEMP 98.6
[2023-03-16] MEDS: HALOPERIDOL 5 MG TABLET PO SCH ×2 (09:01→16:39)
[2023-03-16] MEDS: AMLODIPINE BESYLATE 2.5 MG TABLET PO SCH (09:01)
[2023-03-16] MEDS: DIVALPROEX SODIUM 250 MG TABLET.DR PO SCH ×3 (09:01→16:39)
[2023-03-16] MEDS: LEVOFLOXACIN (250MG) 250 MG TABLET PO SCH (09:01)
[2023-03-16] MEDS: BENZTROPINE MESYLATE (1 MG) 1 MG TABLET PO SCH ×2 (09:02→16:39)
[2023-03-16] MEDS: hydrALAZINE HCL 10 MG TABLET PO SCH (09:02)
[2023-03-16] MEDS: CYANOCOBALAMIN 500 MCG TABLET PO SCH (09:03)
[2023-03-16] MEDS: ENSURE ENLIVE 237 ML LIQUID (VANILLA) PO SCH ×2 (09:03→16:39)
[2023-03-16 16:10] VITALS: BP 117/53; TEMP 97.7; O2SAT 100
[2023-03-16] MEDS: ENOXAPARIN SODIUM 30 MG/0.3 ML DISP.SYRIN SQ SCH (16:41)
[2023-03-16] MEDS: ATORVASTATIN 10 MG TABLET PO SCH (21:40)
[2023-03-16] MEDS: LATANOPROST EYE DROP 0.005% 2.5 ML BOTTLE EACHEYE SCH (21:44)
[2023-03-16 23:48] VITALS: BP 122/64; TEMP 98.1; O2SAT 99
[2023-03-17 06:06] LABS: CREATININE KINASE (CK),MB 2.4 ng/mL (0.0-5.3); PTH, INTACT 35 pg/mL (15-65)
[2023-03-17 06:51] LABS: BASOPHILS % (AUTO) 0.2 % (0.0-2.0); EOSINOPHILS # (AUTO) 0.1 K/uL (0.0-0.7); EOSINOPHILS % (AUTO) 1.3 % (0.0-6.0); HEMATOCRIT 35 % (33-45); HEMOGLOBIN 11.3 g/dL (11.5-14.8); LYMPHOCYTES # (AUTO) 0.7 K/uL (0.8-4.8); LYMPHOCYTES % (AUTO) 8.5 % (20.0-44.0); MEAN CORPUSCULAR HEMOGLOBIN 29 PG (26.0-33.0); MEAN CORPUSCULAR HGB CONC 33 g/dl (31.0-36.0); MEAN CORPUSCULAR VOLUME 90 fL (82-100); MONOCYTES % (AUTO) 11.8 % (2.0-12.0); NEUTROPHILS # (AUTO) 6.5 K/uL (1.8-8.9); NEUTROPHILS % (AUTO) 78.2 % (43.0-81.0); PLATELET COUNT (AUTO) 200 K/uL (150-450); RED BLOOD CELL COUNT(AUTO) 3.87 MIL/uL (4.0-5.2); RED CELL DISTRIBUTION WIDTH 14.7 % (11.5-15.0); WHITE BLOOD COUNT (AUTO) 8.3 K/uL (4.3-11.0)
[2023-03-17 07:30] VITALS: BP 136/70; TEMP 97.9; O2SAT 100
[2023-03-17 07:46] LABS: ALANINE AMINOTRANSFERASE 34 U/L (12-78); ALBUMIN 2.5 g/dL (3.4-5.0); ALKALINE PHOSPHATASE 88 U/L (46-116); ASPARTATE AMINOTRANSFERASE 35 U/L (15-37); BILIRUBIN,TOTAL 0.4 mg/dL (0.2-1.0); CALCIUM, SERUM 9.7 mg/dL (8.5-10.1); CARBON DIOXIDE 30 mmol/L (21-32); CHLORIDE 105 mmol/L (98-107); CREATININE 1.2 mg/dL (0.6-1.3); GLUCOSE 106 mg/dL (74-106); MAGNESIUM 2.5 mg/dL (1.8-2.4); PHOSPHORUS 4.3 mg/dL (2.5-4.9); POTASSIUM 4.6 mmol/L (3.5-5.1); SODIUM SERUM 143 mmol/L (136-145); TOTAL PROTEIN, SERUM 7.7 g/dL (6.4-8.2); UREA NITROGEN, BLOOD 53 mg/dL (7-18)
[2023-03-17] MEDS: hydrALAZINE HCL 10 MG TABLET PO SCH (09:32)
[2023-03-17] MEDS: CYANOCOBALAMIN 500 MCG TABLET PO SCH (09:33)
[2023-03-17] MEDS: BENZTROPINE MESYLATE (1 MG) 1 MG TABLET PO SCH ×2 (09:33→17:47)
[2023-03-17] MEDS: DIVALPROEX SODIUM 250 MG TABLET.DR PO SCH ×2 (09:33→12:13)
[2023-03-17] MEDS: HALOPERIDOL 5 MG TABLET PO SCH ×2 (09:33→17:48)
[2023-03-17] MEDS: AMLODIPINE BESYLATE 2.5 MG TABLET PO SCH (09:34)
[2023-03-17] MEDS: ENSURE ENLIVE 237 ML LIQUID (VANILLA) PO SCH ×2 (09:34→17:48)
[2023-03-17 10:07] LABS: *SPE A/G RATIO 0.5 (0.7-1.7); *SPE ALBUMIN 2.1 g/dL (2.9-4.4); *SPE ALPHA-1-GLOBULIN 0.5 g/dL (0.0-0.4); *SPE ALPHA-2-GLOBULIN 0.9 g/dL (0.4-1.0); *SPE GLOBULIN, TOTAL 4.3 g/dL (2.2-3.9); *SPE M-SPIKE Not Observed g/dL (Not Observed); *SPE PROTEIN TOTAL 6.4 g/dL (6.0-8.5); *SPEGAMMA GLOBULIN 1.8 g/dL (0.4-1.8)
[2023-03-17 12:56] LABS: APPEARANCE,URINE CLEAR (CLEAR); BILIRUBIN,URINE NEGATIVE (NEGATIVE); BLOOD, URINE NEGATIVE Ery/uL (NEGATIVE); COLOR,URINE YELLOW (YELLOW); KETONES,URINE 1+ mg/dL (NEGATIVE); LEUKOCYTE ESTERASE ,URINE TRACE (NEGATIVE); NITRITE, URINE NEGATIVE (NEGATIVE); PROTEIN,URINE TRACE mg/dl (NEGATIVE); UGLUCOSE NEGATIVE (NEGATIVE); UROBILINOGEN,URINE 0.2 EU/dL (0.2)
[2023-03-17 13:19] LABS: ADD URINE CULTURE NO; BACTERIA,URINE Rare /HPF (None Seen); RBC,URINE 0-2 /HPF (0-2); SQUAMOUS EPITHELIAL CELL,UR Rare /HPF (None Seen)
[2023-03-17 16:00] VITALS: BP 118/78; TEMP 97.9; O2SAT 100
[2023-03-17] MEDS: DIVALPROEX SODIUM 125 MG CAP.SPRINK PO SCH (17:47)
[2023-03-17] MEDS: ENOXAPARIN SODIUM 30 MG/0.3 ML DISP.SYRIN SQ SCH (17:49)
[2023-03-17 20:00] VITALS: BP 105/51; TEMP 98.2; O2SAT 98
[2023-03-17] MEDS: ATORVASTATIN 10 MG TABLET PO SCH (21:06)
[2023-03-18 08:00] VITALS: BP 121/45; TEMP 97.7; O2SAT 99
[2023-03-18] MEDS: BENZTROPINE MESYLATE (1 MG) 1 MG TABLET PO SCH ×2 (08:35→16:50)
[2023-03-18] MEDS: DIVALPROEX SODIUM 125 MG CAP.SPRINK PO SCH ×3 (08:35→16:49)
[2023-03-18] MEDS: HALOPERIDOL 5 MG TABLET PO SCH ×2 (08:35→16:50)
[2023-03-18] MEDS: CYANOCOBALAMIN 500 MCG TABLET PO SCH (08:35)
[2023-03-18] MEDS: LEVOFLOXACIN (250MG) 250 MG TABLET PO SCH (08:36)
[2023-03-18] MEDS: AMLODIPINE BESYLATE 2.5 MG TABLET PO SCH (08:36)
[2023-03-18] MEDS: hydrALAZINE HCL 10 MG TABLET PO SCH (08:36)
[2023-03-18] MEDS: ENSURE ENLIVE 237 ML LIQUID (VANILLA) PO SCH ×2 (08:37→16:50)
[2023-03-18] MEDS: LATANOPROST EYE DROP 0.005% 2.5 ML BOTTLE EACHEYE SCH (08:48)
[2023-03-18 09:51] VITALS: BP 124/60; O2SAT 99
[2023-03-18 09:57] LABS: BASOPHILS % (AUTO) 0.5 % (0.0-2.0); EOSINOPHILS % (AUTO) 0.8 % (0.0-6.0); HEMATOCRIT 32 % (33-45); HEMOGLOBIN 10.7 g/dL (11.5-14.8); LYMPHOCYTES # (AUTO) 0.6 K/uL (0.8-4.8); LYMPHOCYTES % (AUTO) 9.6 % (20.0-44.0); MEAN CORPUSCULAR HEMOGLOBIN 29 PG (26.0-33.0); MEAN CORPUSCULAR HGB CONC 33 g/dl (31.0-36.0); MEAN CORPUSCULAR VOLUME 88 fL (82-100); MONOCYTES # (AUTO) 0.8 K/uL (0.1-1.30); MONOCYTES % (AUTO) 12.2 % (2.0-12.0); NEUTROPHILS % (AUTO) 76.9 % (43.0-81.0); PLATELET COUNT (AUTO) 210 K/uL (150-450); RED BLOOD CELL COUNT(AUTO) 3.66 MIL/uL (4.0-5.2); RED CELL DISTRIBUTION WIDTH 14.6 % (11.5-15.0); WHITE BLOOD COUNT (AUTO) 6.4 K/uL (4.3-11.0)
[2023-03-18 10:14] LABS: CALCIUM, SERUM 9.5 mg/dL (8.5-10.1); CARBON DIOXIDE 27 mmol/L (21-32); CHLORIDE 108 mmol/L (98-107); CREATININE 1.2 mg/dL (0.6-1.3); GLUCOSE 97 mg/dL (74-106); MAGNESIUM 2.5 mg/dL (1.8-2.4); PHOSPHORUS 4.3 mg/dL (2.5-4.9); POTASSIUM 4.1 mmol/L (3.5-5.1); SODIUM SERUM 145 mmol/L (136-145); UREA NITROGEN, BLOOD 59 mg/dL (7-18)
[2023-03-18] MEDS ORDERED: Z GUARD REMEDY 4 OZ OINT TP PRN (11:00)
[2023-03-18] MEDS: IV 1/2NS 1000 ML 1,000 ML IV PRN (12:51)
[2023-03-18] MEDS: Z GUARD REMEDY 4 OZ OINT TP SCH (12:51)
[2023-03-18 16:00] VITALS: BP 111/64; TEMP 98.6; O2SAT 100
[2023-03-18] MEDS: ENOXAPARIN SODIUM 30 MG/0.3 ML DISP.SYRIN SQ SCH (16:52)
[2023-03-18 19:00] VITALS: BP 106/52; TEMP 97.9; O2SAT 98
[2023-03-18 20:00] VITALS: BP 106/52; TEMP 97.9; O2SAT 98
[2023-03-18] MEDS: ATORVASTATIN 10 MG TABLET PO SCH (22:16)
[2023-03-19] MEDS: IV 1/2NS 1000 ML 1,000 ML IV PRN (01:57)
[2023-03-19 06:47] LABS: BASOPHILS % (AUTO) 0.6 % (0.0-2.0); EOSINOPHILS # (AUTO) 0.1 K/uL (0.0-0.7); EOSINOPHILS % (AUTO) 1.8 % (0.0-6.0); HEMATOCRIT 34 % (33-45); HEMOGLOBIN 11.1 g/dL (11.5-14.8); LYMPHOCYTES # (AUTO) 0.7 K/uL (0.8-4.8); LYMPHOCYTES % (AUTO) 11.5 % (20.0-44.0); MEAN CORPUSCULAR HEMOGLOBIN 29 PG (26.0-33.0); MEAN CORPUSCULAR HGB CONC 33 g/dl (31.0-36.0); MEAN CORPUSCULAR VOLUME 90 fL (82-100); MONOCYTES # (AUTO) 0.8 K/uL (0.1-1.30); MONOCYTES % (AUTO) 12.6 % (2.0-12.0); NEUTROPHILS # (AUTO) 4.5 K/uL (1.8-8.9); NEUTROPHILS % (AUTO) 73.5 % (43.0-81.0); PLATELET COUNT (AUTO) 223 K/uL (150-450); RED BLOOD CELL COUNT(AUTO) 3.82 MIL/uL (4.0-5.2); RED CELL DISTRIBUTION WIDTH 14.8 % (11.5-15.0); WHITE BLOOD COUNT (AUTO) 6.2 K/uL (4.3-11.0)
[2023-03-19 07:22] LABS: CALCIUM, SERUM 9.2 mg/dL (8.5-10.1); CARBON DIOXIDE 27 mmol/L (21-32); CHLORIDE 107 mmol/L (98-107); CREATININE 1.1 mg/dL (0.6-1.3); GLUCOSE 101 mg/dL (74-106); MAGNESIUM 2.4 mg/dL (1.8-2.4); PHOSPHORUS 3.4 mg/dL (2.5-4.9); POTASSIUM 3.6 mmol/L (3.5-5.1); SODIUM SERUM 144 mmol/L (136-145); UREA NITROGEN, BLOOD 51 mg/dL (7-18)
[2023-03-19 07:30] VITALS: BP 138/120; TEMP 98.2; O2SAT 100
[2023-03-19] MEDS: CYANOCOBALAMIN 500 MCG TABLET PO SCH (08:39)
[2023-03-19] MEDS: HALOPERIDOL 5 MG TABLET PO SCH ×2 (08:39→18:57)
[2023-03-19] MEDS: BENZTROPINE MESYLATE (1 MG) 1 MG TABLET PO SCH ×2 (08:40→18:54)
[2023-03-19] MEDS: AMLODIPINE BESYLATE 2.5 MG TABLET PO SCH (08:40)
[2023-03-19] MEDS: DIVALPROEX SODIUM 125 MG CAP.SPRINK PO SCH ×3 (08:40→18:54)
[2023-03-19] MEDS: hydrALAZINE HCL 10 MG TABLET PO SCH (08:42)
[2023-03-19] MEDS: LATANOPROST EYE DROP 0.005% 2.5 ML BOTTLE EACHEYE SCH (09:00)
[2023-03-19] MEDS: Z GUARD REMEDY 4 OZ OINT TP SCH (09:13)
[2023-03-19] MEDS: ENSURE ENLIVE 237 ML LIQUID (VANILLA) PO SCH ×2 (09:15→17:00)
[2023-03-19] MEDS ORDERED: LEVO750T46 PO (15:19)
[2023-03-19] MEDS ORDERED: BISACODYL SUPP (10 MG) 10 MG/SUPP.RECT SUPP.RECT RC ONE (16:00)
[2023-03-19] MEDS: ENOXAPARIN SODIUM 30 MG/0.3 ML DISP.SYRIN SQ SCH (18:59)
[2023-03-19 20:37] VITALS: BP 122/64; TEMP 97.5; O2SAT 100
[2023-03-19] MEDS: ATORVASTATIN 10 MG TABLET PO SCH (21:21)
[2023-03-20 07:30] VITALS: BP 108/92; TEMP 98.1; O2SAT 100
[2023-03-20] MEDS: LATANOPROST EYE DROP 0.005% 2.5 ML BOTTLE EACHEYE SCH (09:33)
[2023-03-20] MEDS: DIVALPROEX SODIUM 125 MG CAP.SPRINK PO SCH ×3 (09:34→16:44)
[2023-03-20] MEDS: HALOPERIDOL 5 MG TABLET PO SCH ×2 (09:34→16:44)
[2023-03-20] MEDS: BENZTROPINE MESYLATE (1 MG) 1 MG TABLET PO SCH ×2 (09:34→16:44)
[2023-03-20] MEDS: ENSURE ENLIVE 237 ML LIQUID (VANILLA) PO SCH ×2 (09:34→16:44)
[2023-03-20] MEDS: CYANOCOBALAMIN 500 MCG TABLET PO SCH (09:34)
[2023-03-20] MEDS: hydrALAZINE HCL 10 MG TABLET PO SCH (09:35)
[2023-03-20] MEDS: AMLODIPINE BESYLATE 2.5 MG TABLET PO SCH (09:35)
[2023-03-20] MEDS: Z GUARD REMEDY 4 OZ OINT TP SCH (09:37)
[2023-03-20] MEDS: LEVOFLOXACIN (250MG) 250 MG TABLET PO SCH (09:40)
[2023-03-20 16:00] VITALS: BP 115/50; TEMP 99.5; O2SAT 100
[2023-03-20] MEDS: ENOXAPARIN SODIUM 30 MG/0.3 ML DISP.SYRIN SQ SCH (16:52)
[2023-03-20 20:00] VITALS: BP 109/58; TEMP 98.5; O2SAT 98
[2023-03-20] MEDS: IV 1/2NS 1000 ML 1,000 ML IV PRN (20:23)
[2023-03-20] MEDS: ATORVASTATIN 10 MG TABLET PO SCH (21:28)
[2023-03-21 07:16] LABS: BASOPHILS % (AUTO) 0.1 % (0.0-2.0); EOSINOPHILS # (AUTO) 0.2 K/uL (0.0-0.7); HEMATOCRIT 31 % (33-45); LYMPHOCYTES % (AUTO) 9.1 % (20.0-44.0); MEAN CORPUSCULAR HEMOGLOBIN 29 PG (26.0-33.0); MEAN CORPUSCULAR HGB CONC 32 g/dl (31.0-36.0); MEAN CORPUSCULAR VOLUME 90 fL (82-100); MONOCYTES # (AUTO) 1.6 K/uL (0.1-1.30); MONOCYTES % (AUTO) 13.5 % (2.0-12.0); NEUTROPHILS # (AUTO) 8.6 K/uL (1.8-8.9); NEUTROPHILS % (AUTO) 75.3 % (43.0-81.0); PLATELET COUNT (AUTO) 232 K/uL (150-450); RED BLOOD CELL COUNT(AUTO) 3.49 MIL/uL (4.0-5.2); WHITE BLOOD COUNT (AUTO) 11.5 K/uL (4.3-11.0)
[2023-03-21 07:23] LABS: CALCIUM, SERUM 8.6 mg/dL (8.5-10.1); MAGNESIUM 2.2 mg/dL (1.8-2.4); PHOSPHORUS 2.8 mg/dL (2.5-4.9); POTASSIUM 3.9 mmol/L (3.5-5.1)
[2023-03-21 08:00] VITALS: BP 131/50; TEMP 98.1; O2SAT 94
[2023-03-21] MEDS: HALOPERIDOL 5 MG TABLET PO SCH ×2 (08:25→16:12)
[2023-03-21] MEDS: BENZTROPINE MESYLATE (1 MG) 1 MG TABLET PO SCH ×2 (08:25→16:12)
[2023-03-21] MEDS: DIVALPROEX SODIUM 125 MG CAP.SPRINK PO SCH ×3 (08:25→16:12)
[2023-03-21] MEDS: hydrALAZINE HCL 10 MG TABLET PO SCH (08:25)
[2023-03-21] MEDS: CYANOCOBALAMIN 500 MCG TABLET PO SCH (08:25)
[2023-03-21] MEDS: ENSURE ENLIVE 237 ML LIQUID (VANILLA) PO SCH ×2 (08:26→16:12)
[2023-03-21] MEDS: AMLODIPINE BESYLATE 2.5 MG TABLET PO SCH (08:26)
[2023-03-21] MEDS: LATANOPROST EYE DROP 0.005% 2.5 ML BOTTLE EACHEYE SCH (08:32)
[2023-03-21] MEDS: Z GUARD REMEDY 4 OZ OINT TP SCH (08:36)
[2023-03-21] MEDS: IV 1/2NS 1000 ML 1,000 ML IV PRN (12:05)
[2023-03-21] MEDS ORDERED: CEFEPIME 1 GM in IV D5W 50 ML IV SCH (13:00)
[2023-03-21] MEDS ORDERED: CEFE1FRO IV (14:05)
[2023-03-21 16:00] VITALS: BP 123/71; TEMP 98.6; O2SAT 92
[2023-03-21] MEDS: ENOXAPARIN SODIUM 30 MG/0.3 ML DISP.SYRIN SQ SCH (16:22)
== END 2023-03-21 18:28 | DRG 177 ==
LOC: MED 15:52
DX: J69.0 Pneumonitis due to inhalation of food and vomit (principal); G92.8 Other toxic encephalopathy; N17.0 Acute kidney failure with tubular necrosis; F02.83 Dementia in other diseases classified elsewhere, unspecified severity, with mood disturbance; F02.82 Dementia in other diseases classified elsewhere, unspecified severity, with psychotic disturbance; F02.818 Dementia in other diseases classified elsewhere, unspecified severity, with other behavioral disturbance; J15.6 Pneumonia due to other Gram-negative bacteria; G30.9 Alzheimer's disease, unspecified; Z73.6 Limitation of activities due to disability; F39 Unspecified mood [affective] disorder; I10 Essential (primary) hypertension; G62.9 Polyneuropathy, unspecified; H40.9 Unspecified glaucoma; F31.9 Bipolar disorder, unspecified; E86.0 Dehydration; R09.02 Hypoxemia; Z88.2 Allergy status to sulfonamides; Z91.013 Allergy to seafood; F09 Unspecified mental disorder due to known physiological condition; Z79.899 Other long term (current) drug therapy
CPT/HCPCS: 36415; 71045-TC; 80048-TC; 80053-TC; 80164-TC; 81001; 82550-TC; 82553; 82570-TC; 82962-TC; 83735-TC; 83970; 84100-TC; 84155; 84165; 84300-TC; 85025-TC; 87040-TC; 87081-TC; 87086-TC; 92526; 92611-TC; A4223; G0378; J0692; J1650; J3490; J7060